=== PATIENT | male | born 1970 | race Caucasian/White ===

== ENCOUNTER 2016-08-02 22:08 | Observation (INO) | payer SELFPAY ==
[~2016-08-02] VITALS: Ht 177.8 cm; Wt 60.5 kg
[~2016-08-02 22:08] MED LIST: DARV PO; DOXY100T PO; PRIL20TA2 PO; SULF1TAB47 PO
[2016-08-02] MEDS ORDERED: OMEP20TA PO (22:38)
[2016-08-02 22:39] VITALS: BP 132/102; PULSE 87; RESP 16; TEMP 99; O2SAT 98
[2016-08-02] MEDS ORDERED: ONDANSETRON HCL 4 MG/2 ML VIAL IVP ONE (22:45)
[2016-08-02] MEDS ORDERED: SODIUM CHLORIDE 0.9% FLUSH 5 ML FLUSH IVF PRN (22:45)
[2016-08-02] MEDS ORDERED: FAMOTIDINE 20 MG/2 ML VIAL IV PUSH ONE (22:45)
[2016-08-02] MEDS ORDERED: PANTOPRAZOLE SODIUM 40 MG VIAL IVP ONE (22:45)
--- NOTE | 2016-08-02 22:56 | PD ---
HPI Chief Complaint: GI Complaint Time Seen by Provider: 22:37 Travel History International Travel<30 days: No Contact w/Intl Traveler<30days: No Traveled to known affect area: No History of Present Illness HPI The patient is a 46-year-old male with a history of gastritis and esophagitis who complains of nausea, vomiting, diarrhea and epigastric pain today. He denies vomiting any blood. He denies any blood in the stool. He denies any fever. He has undergone upper endoscopy in the past and is found to have gastritis and esophagitis according to the patient. Most of his workup in the past has been on in [place] where he used to live but he moved in with his sister here in [place] lately. He does take Prilosec 20 mg daily but missed his dose today. He admits to 2 beers today. He does have a history of anxiety and panic attacks. [facility] Past Medical History GERD: Yes Social History Alcohol Use: Yes (6 PACK PER DAY) Tobacco Use: Yes (1/2 PACK PER DAY) Substance Use: No Allergies-Medications (Allergen,Severity, Reaction): Coded Allergies: No Known Allergies (Verified , 08/02/16) Reported Meds & Prescriptions Reported Meds & Active Scripts Active Reported Omeprazole 20 Mg Tab 20 Mg PO DAILY Review of Systems Except as stated in HPI: all other systems reviewed are Neg Physical Exam Narrative GENERAL: The patient is alert, oriented 3, anxious in slight apparent distress with his abdominal discomfort. His vital signs show blood pressure 132/102 but otherwise normal. SKIN: Warm and dry. HEAD: Atraumatic. Normocephalic. EYES: Pupils equal and round. No scleral icterus. No injection or drainage. ENT: No nasal bleeding or discharge. Mucous membranes pink and moist. NECK: Trachea midline. No JVD. CARDIOVASCULAR: Regular rate and rhythm. No murmur appreciated. RESPIRATORY: No accessory muscle use. Clear to auscultation. Breath sounds equal bilaterally. GASTROINTESTINAL: Abdomen soft, with tenderness to direct palpation in the midline epigastrium and bilateral lower quadrants, nondistended. Hepatic and splenic margins not palpable. No guarding or rebound is present. MUSCULOSKELETAL: No obvious deformities. No clubbing. No cyanosis. No edema. NEUROLOGICAL: Awake and alert. No obvious cranial nerve deficits. Motor grossly within normal limits. Normal speech. PSYCHIATRIC: The patient is anxious but otherwise has an appropriate affect.; insight and judgment normal. Data Data Last Documented VS Vital Signs Date Time Temp Pulse Resp B/P Pulse Ox O2 Delivery O2 Flow Rate FiO2 08/02/16 23:19 80 16 100 Room Air 08/02/16 22:39 99.0 132/102 Orders Complete Blood Count With Diff (08/02/16 22:45) Comprehensive Metabolic Panel (08/02/16 22:45) Lipase (08/02/16 22:45) Urinalysis - C+S If Indicated (08/02/16 22:45) Iv Access Insert/Monitor (08/02/16 22:45) Ecg Monitoring (08/02/16 22:45) Oximetry (08/02/16 22:45) Ondansetron Inj (Zofran Inj) (08/02/16 22:45) Pantoprazole Inj (Protonix Inj) (08/02/16 22:45) Sodium Chloride 0.9% Flush (Ns Flush) (08/02/16 22:45) Famotidine Inj (Pepcid Inj) (08/02/16 22:45) Sodium Chlor 0.9% 1000 Ml Inj (Ns 1000 M (08/02/16 22:45) Alcohol (Ethanol) (08/02/16 22:45) Ns + Kcl Inj (08/03/16 00:45) Labs Laboratory Tests Test 08/02/16 08/02/16 22:40 23:45 White Blood Count 3.8 TH/MM3 Red Blood Count 4.06 MIL/MM3 Hemoglobin 11.4 GM/DL Hematocrit 35.1 % Mean Corpuscular Volume 86.5 FL Mean Corpuscular Hemoglobin 28.2 PG Mean Corpuscular Hemoglobin 32.6 % Concent Red Cell Distribution Width 15.6 % Platelet Count 112 TH/MM3 Mean Platelet Volume 7.9 FL Neutrophils (%) (Auto) 45.8 % Lymphocytes (%) (Auto) 38.6 % Monocytes (%) (Auto) 14.0 % Eosinophils (%) (Auto) 0.4 % Basophils (%) (Auto) 1.2 % Neutrophils # (Auto) 1.8 TH/MM3 Lymphocytes # (Auto) 1.5 TH/MM3 Monocytes # (Auto) 0.5 TH/MM3 Eosinophils # (Auto) 0.0 TH/MM3 Basophils # (Auto) 0.0 TH/MM3 CBC Comment DIFF FINAL Differential Comment Sodium Level 134 MEQ/L Potassium Level 3.0 MEQ/L Chloride Level 95 MEQ/L Carbon Dioxide Level 26.3 MEQ/L Anion Gap 13 MEQ/L Blood Urea Nitrogen 4 MG/DL Creatinine 0.79 MG/DL Estimat Glomerular Filtration 105 ML/MIN Rate Random Glucose 113 MG/DL Calcium Level 8.4 MG/DL Total Bilirubin 0.5 MG/DL Aspartate Amino Transf 281 U/L (AST/SGOT) Alanine Aminotransferase 74 U/L (ALT/SGPT) Alkaline Phosphatase 62 U/L Total Protein 7.9 GM/DL Albumin 3.4 GM/DL Lipase 651 U/L Ethyl Alcohol Level 248 MG/DL Urine Collection Type CLEAN CATCH Urine Color YELLOW Urine Turbidity CLEAR Urine pH 7.0 Urine Specific [place] 1.006 Urine Protein NEG mg/dL Urine Glucose (UA) NEG mg/dL Urine Ketones NEG mg/dL Urine Occult Blood NEG Urine Nitrite NEG Urine Bilirubin NEG Urine Leukocyte Esterase NEG Urine WBC 0-2 /hpf Urine Squamous Epithelial 0-5 /hpf Cells Microscopic Urinalysis Comment CULT NOT INDICATED MDM Medical Decision Making Medical Screen Exam Complete: Yes Emergency Medical Condition: Yes Medical Record Reviewed: Yes Interpretation(s) The complete metabolic profile shows a sodium of 134, potassium 3.0, AST of 281 but is otherwise unremarkable. The lipase is 651. The CBC shows a white count of 3800 with a hemoglobin 11.4 and hematocrit of 35.1 and platelet count of 112, 000 but is otherwise unremarkable. The alcohol level is 248. Differential Diagnosis Alcohol gastritis, pancreatitis, colitis, alcohol intoxication/abuse, electrolyte disorder, dehydration Narrative Course The patient admitted to only 2 beers today, it is obvious that he is not truthful about his alcohol intake. He also has a pancreatitis and is clinically dehydrated. The patient also has a hypokalemia and hyponatremia. The hypokalemia/hyponatremia may be due to his ingestion of water and other hypotonic liquids. Impressions: Pancreatitis, alcohol abuse, dehydration, electrolyte disorder Plan: The patient will be admitted under [address] Rodas of the [facility] service. Diagnosis Primary Impression: Pancreatitis, alcoholic, acute Additional Impressions: Hyponatremia Hypokalemia Moderate dehydration Admitting Information Admitting Physician Requests: Observation Sly Sierra MD Aug 02, 2016 22:56
[2016-08-02] MEDS: SODIUM CHLOR 0.9% 1000 ML INJ 1,000 ML IV SCH ×2 (23:00→23:23)
[2016-08-02 23:14] LABS: CHLORIDE 95 MEQ/L (98-107); SODIUM (NA) 134 MEQ/L (136-145)
[2016-08-02 23:15] LABS: AUTOMATED NEUTROPHIL # 1.8 TH/MM3 (1.8-7.7); BASOPHIL % 1.2 % (0.0-2.0); EOSINOPHIL % 0.4 % (0.0-4.0); HEMATOCRIT 35.1 % (39.0-51.0); HEMO FLAGS DIFF FINAL; LYMPH % 38.6 % (9.0-44.0); LYMPHOCYTE # 1.5 TH/MM3 (1.0-4.8); MEAN CELL VOLUME 86.5 FL (80.0-100.0); MEAN CORPUSCULAR HEMOGLOBIN 28.2 PG (27.0-34.0); MEAN CORPUSCULAR HGB CONC 32.6 % (32.0-36.0); NEUT % 45.8 % (16.0-70.0); PLATELET COUNT 112 TH/MM3 (150-450); RED BLOOD COUNT 4.06 MIL/MM3 (4.50-5.90); RED CELL DISTRIBUTION WIDTH 15.6 % (11.6-17.2); WHITE BLOOD COUNT 3.8 TH/MM3 (4.0-11.0)
[2016-08-02 23:18] LABS: ANION GAP 13 MEQ/L (5-15); BICARBONATE 26.3 MEQ/L (21.0-32.0); BLOOD UREA NITROGEN 4 MG/DL (7-18)
[2016-08-02 23:19] VITALS: PULSE 80; RESP 16; O2SAT 100
[2016-08-02 23:21] LABS: ALT (GPT) 74 U/L (12-78); AST (GOT) 281 U/L (15-37); GLOMERULAR FILTRATION RATE 105 ML/MIN (>89)
[2016-08-02 23:22] LABS: TOTAL BILIRUBIN ADULT 0.5 MG/DL (0.2-1.0)
[2016-08-02 23:24] LABS: ALKALINE PHOSPHATASE 62 U/L (45-117)
[2016-08-03 00:09] LABS: BLOOD, URINE NEG (NEG); GLUCOSE,URINE NEG (NEG); KETONE, URINE NEG (NEG); NITRITE,URINE NEG (NEG)
[2016-08-03 00:19] LABS: METHOD OF COLLECTION CLEAN CATCH; URINE COLOR YELLOW (YELLW/STRAW)
[2016-08-03 00:20] LABS: SQUAMOUS EPITHELIAL CELL URINE 0-5 /hpf (0-5)
[2016-08-03 00:21] LABS: COMMENT (UR) CULT NOT INDICATED; CULTURE IF INDICATED CULT NOT INDICATED; WBC, URINE 0-2 /hpf (0-5)
[2016-08-03] MEDS: NS + KCL 40 MEQ INJ 1,000 ML IV SCH ×2 (00:43→08:42)
[2016-08-03] MEDS: SODIUM CHLOR 0.9% 1000 ML INJ 1,000 ML IV SCH ×2 (01:22→11:22)
[2016-08-03] MEDS ORDERED: LORazepam 2 MG/ML VIAL IV PUSH PRN ×4 (01:30)
[2016-08-03] MEDS ORDERED: ONDANSETRON HCL 4 MG/2 ML VIAL IVP PRN (01:30)
[2016-08-03] MEDS ORDERED: FLUMAZENIL 1 MG/10 ML VIAL IV PUSH PRN (01:30)
[2016-08-03] MEDS ORDERED: NALOXONE HCL 0.4 MG/ML AMP IV PRN (01:30)
[2016-08-03] MEDS ORDERED: SODIUM CHLORIDE 0.9% FLUSH 5 ML FLUSH FLUSH PRN (01:30)
[2016-08-03] MEDS ORDERED: LORazepam 1 MG TAB PO PRN (01:30)
[2016-08-03] MEDS ORDERED: LORazepam 2 MG TAB PO PRN (01:30)
[2016-08-03] MEDS ORDERED: MORPHINE SULFATE 4 MG/ML INJ IV PUSH PRN (01:30)
[2016-08-03] MEDS ORDERED: SODIUM CHLORIDE 0.9% FLUSH 5 ML FLUSH IV FLUSH PRN (01:30)
[2016-08-03 01:37] VITALS: BP 144/89; PULSE 82; RESP 16; O2SAT 99
[2016-08-03 05:46] VITALS: BP 149/93; PULSE 78; RESP 18; TEMP 98.7; O2SAT 96
[2016-08-03 07:15] VITALS: BP 146/90; PULSE 69; RESP 16; TEMP 98.7; O2SAT 98
[2016-08-03 07:55] LABS: AUTOMATED NEUTROPHIL # 1.9 TH/MM3 (1.8-7.7); BASOPHIL % 1.4 % (0.0-2.0); EOSINOPHIL # 0.1 TH/MM3 (0-0.4); EOSINOPHIL % 1.6 % (0.0-4.0); HEMATOCRIT 33.1 % (39.0-51.0); HEMO FLAGS DIFF FINAL; LYMPH % 29.8 % (9.0-44.0); MEAN CELL VOLUME 88.2 FL (80.0-100.0); MEAN CORPUSCULAR HEMOGLOBIN 28.8 PG (27.0-34.0); MEAN CORPUSCULAR HGB CONC 32.7 % (32.0-36.0); MONO % 12.8 % (0.0-8.0); NEUT % 54.4 % (16.0-70.0); PLATELET COUNT 106 TH/MM3 (150-450); RED BLOOD COUNT 3.75 MIL/MM3 (4.50-5.90); RED CELL DISTRIBUTION WIDTH 16.5 % (11.6-17.2); WHITE BLOOD COUNT 3.4 TH/MM3 (4.0-11.0)
[2016-08-03 08:18] LABS: ALKALINE PHOSPHATASE 53 U/L (45-117); ALT (GPT) 66 U/L (12-78); ANION GAP 10 MEQ/L (5-15); AST (GOT) 204 U/L (15-37); BICARBONATE 22.1 MEQ/L (21.0-32.0); BLOOD UREA NITROGEN 3 MG/DL (7-18); CHLORIDE 110 MEQ/L (98-107); GLOMERULAR FILTRATION RATE 115 ML/MIN (>89); POTASSIUM 4.1 MEQ/L (3.5-5.1); SODIUM (NA) 142 MEQ/L (136-145); TOTAL BILIRUBIN ADULT 0.7 MG/DL (0.2-1.0)
[2016-08-03] MEDS ORDERED: SODIUM CHLORIDE 0.9% FLUSH 5 ML FLUSH IV FLUSH SCH (09:00)
[2016-08-03] MEDS ORDERED: SODIUM CHLORIDE 0.9% FLUSH 5 ML FLUSH FLUSH SCH (09:00)
[2016-08-03 11:16] VITALS: BP 146/83; PULSE 67; RESP 18; TEMP 99.2; O2SAT 98
[2016-08-03 13:05] VITALS: BP 163/92; PULSE 69; RESP 18; O2SAT 98
[2016-08-03] MEDS ORDERED: cloNIDine HCL 0.1 MG TAB PO PRN (13:45)
[2016-08-03] MEDS ORDERED: PANTOPRAZOLE SOD 20 MG DELAYED RELEASE TAB PO SCH (14:00)
--- NOTE | 2016-08-03 14:05 | HHI.HP ---
[facility] No Primary Care Physician Admission Diagnosis pancreatitis, dehydration, electrolyte disorder, alcohol abuse Diagnoses: (1) Abdominal pain Diagnosis: Principal (2) Nausea & vomiting Diagnosis: Principal (3) Elevated lipase Diagnosis: Principal (4) Alcohol abuse Diagnosis: Secondary (5) Hyponatremia Diagnosis: Principal (6) Hypokalemia Diagnosis: Principal (7) Elevated blood pressure reading Diagnosis: Principal Chief Complaint: Abdominal pain with nausea vomiting Travel History International Travel<30 Days: No Contact w/Intl Traveler <30 Da: No Traveled to Known Affected Are: No History of Present Illness 46-year-old male with known history of chronic alcoholism who presented to hospital as of abdominal pain, nausea and vomiting. Patient states that 3 days ago he feels if he had a panic attack. However he recovered from that and had no other further problems. Then yesterday he experienced some generalized abdominal pain and had one episode of nausea vomiting. Because of that reason he came to the hospital for evaluation. Patient denies any hematemesis, recurrent nausea or vomiting, diarrhea, hematochezia. Patient indicates that he does have chronic abdominal issues in which she does take Prilosec on a daily basis. The patient indicates a previous endoscopy before and was notified that he had gastritis. At the time evaluating the patient the patient seems to be doing much improved. He has not had any recurrent nausea or vomiting. He has been well hydrated and urinating copiously. He does have an appetite and he is hungry. Review of Systems Constitutional: DENIES: Diaphoretic episodes, Fatigue, Fever, Weight gain, Weight loss, Chills, Dizziness, Change in appetite, Night Sweats Eyes: DENIES: Blurred vision, Diplopia, Eye inflammation, Eye pain, Vision loss , Double Vision Ears, nose, mouth, throat: DENIES: Vertigo, Nasal discharge, Throat pain, Ear Pain, Running Nose, Sinus Pain Respiratory: DENIES: Apneas, Cough, Snoring, Wheezing, Hemoptysis, Sputum production, Shortness of breath Cardiovascular: DENIES: Chest pain, Palpitations, Syncope, Dyspnea on Exertion , Lower Extremity Edema, Orthopnea Gastrointestinal: COMPLAINS OF: Abdominal pain, Nausea, Vomiting, DENIES: Black stools, Bloody stools, Constipation, Diarrhea, Difficulty Swallowing, Anorexia Neurologic: DENIES: Abnormal gait, Headache, Localized weakness, Paresthesias, Seizures, Speech Problems, Tremor, Poor Balance Psychiatric: COMPLAINS OF: Anxiety, DENIES: Confusion, Mood changes, Depression Past Family Social History Past Medical History Chronic alcohol abuse Panic attacks Tobacco use Past Surgical History Endoscopies Reported Medications Reported Meds & Active Scripts Active Reported Omeprazole 20 Mg Tab 20 Mg PO DAILY Allergies: Coded Allergies: No Known Allergies (Verified , 08/02/16) Family History Reviewed is significant for diabetes and stroke Social History Patient smokes about 5-10 cigarettes daily since he was 14 years old. Does drink alcohol roughly 8-10 beers daily. Denies any illicit drug use, however records indicate he has history of cocaine use Physical Exam Vital Signs Vital Signs Date Time Temp Pulse Resp B/P Pulse Ox O2 Delivery O2 Flow Rate FiO2 08/03/16 13:05 69 18 163/92 98 08/03/16 11:16 99.2 67 18 146/83 98 08/03/16 07:15 16 08/03/16 07:15 98 Room Air 08/03/16 07:15 98.7 69 16 146/90 98 Room Air 08/03/16 05:46 98.7 78 18 149/93 96 Room Air 08/03/16 01:37 82 16 144/89 99 Room Air 08/02/16 23:19 80 16 100 Room Air 08/02/16 22:39 99.0 87 16 132/102 98 Physical Exam GENERAL: Well-developed, well-nourished, in no acute distress. alert and orientated HEENT: Head is normocephalic without any lesions or masses noted. Facial features are symmetric. Eyes: Pupils equal round reactive to light. Extraocular muscles are intact. Conjunctivae were clear. Oropharyngeal: Pharynx without any erythema edema. Tongue is midline without deviation. Buccal mucosa is moist without any masses or lesions NECK: Supple without any masses. Trachea midline no deviation. No JVD, no bruits are appreciated CARDIAC: Regular rhythm, regular rate. S1/S2 are heard. No murmurs gallops or rubs. LUNGS: Clear to auscultation bilaterally. No wheeze, rhonchi or rales. No use of accessory muscles on inspiration or expiration. ABDOMEN: Soft, nontender. Nondistended. Bowel sounds heard in all 4 quadrants. No organomegaly or masses. Negative rebound, negative guarding EXTREMITIES: No edema, pulses are equal bilaterally. No cyanosis or clubbing NEUROLOGY: Mood and affect appear appropriate. Cranial nerves II through XII grossly intact. Muscle strength 5/5 in upper and lower extremities bilaterally. Deep tendon reflexes are 2+ in upper and lower extremities bilaterally. Laboratory Laboratory Tests Test 08/02/16 08/02/16 08/03/16 22:40 23:45 07:44 White Blood Count 3.8 3.4 Red Blood Count 4.06 3.75 Hemoglobin 11.4 10.8 Hematocrit 35.1 33.1 Mean Corpuscular Volume 86.5 88.2 Mean Corpuscular Hemoglobin 28.2 28.8 Mean Corpuscular Hemoglobin 32.6 32.7 Concent Red Cell Distribution Width 15.6 16.5 Platelet Count 112 106 Mean Platelet Volume 7.9 7.7 Neutrophils (%) (Auto) 45.8 54.4 Lymphocytes (%) (Auto) 38.6 29.8 Monocytes (%) (Auto) 14.0 12.8 Eosinophils (%) (Auto) 0.4 1.6 Basophils (%) (Auto) 1.2 1.4 Neutrophils # (Auto) 1.8 1.9 Lymphocytes # (Auto) 1.5 1.0 Monocytes # (Auto) 0.5 0.4 Eosinophils # (Auto) 0.0 0.1 Basophils # (Auto) 0.0 0.0 CBC Comment DIFF FINAL DIFF FINAL Differential Comment Sodium Level 134 142 Potassium Level 3.0 4.1 Chloride Level 95 110 Carbon Dioxide Level 26.3 22.1 Anion Gap 13 10 Blood Urea Nitrogen 4 3 Creatinine 0.79 0.73 Estimat Glomerular Filtration 105 115 Rate Random Glucose 113 79 Calcium Level 8.4 7.8 Total Bilirubin 0.5 0.7 Aspartate Amino Transf 281 204 (AST/SGOT) Alanine Aminotransferase 74 66 (ALT/SGPT) Alkaline Phosphatase 62 53 Total Protein 7.9 7.0 Albumin 3.4 3.0 Lipase 651 493 Ethyl Alcohol Level 248 Urine Collection Type CLEAN CATCH Urine Color YELLOW Urine Turbidity CLEAR Urine pH 7.0 Urine Specific [place] 1.006 Urine Protein NEG Urine Glucose (UA) NEG Urine Ketones NEG Urine Occult Blood NEG Urine Nitrite NEG Urine Bilirubin NEG Urine Leukocyte Esterase NEG Urine WBC 0-2 Urine Squamous Epithelial 0-5 Cells Microscopic Urinalysis Comment CULT NOT INDICATED Result Diagram: 08/03/16 0744 08/03/16 0744 Assessment and Plan Assessment and Plan Abdominal pain with nausea, vomiting, elevated lipase level Could possibly be alcoholic pancreatitis versus alcoholic gastritis Continue IV fluids, antiemetic, proton pump inhibitor, pain control Lipase level is trending down nicely Clear liquid diet, advance diet as tolerated patient is hungry Chronic alcohol use Patient counseled on cessation, patient states that he is not going to quit drinking, but he will try to cut back on drinking CIWA protocol Monitor for withdrawals Elevated blood pressure Likely secondary to alcohol abuse, withdrawal Clonidine as needed Electrolyte abnormalities with hyponatremia, hypokalemia, resolved Likely secondary to chronic alcohol use Continue monitoring place as needed DVT prevention Low risk, early ambulation Written by Cr Sierra PA-C, acting as scribe for Dr. Dickerson on 08/03/16 at 1400. The documentation accurately reflects the work and decisions performed face-to- face by Dr. Dickerson on 08/03/16 at 1400. Discharge disposition Discharge home in stable condition if tolerates diet Activity: Ad angie. Diet: Healthy heart diet Medications per medication reconciliation Follow-up primary medical doctor in one week Problem Qualifiers (1) Abdominal pain: Qualified Code: R10.84 - Generalized abdominal pain (2) Nausea & vomiting: Qualified Code: R11.2 - Non-intractable vomiting with nausea, unspecified vomiting type Cr Sierra Aug 03, 2016 14:05
--- NOTE | 2016-08-03 14:07 | HHI.DCPOC ---
Discharge Care Plan Diagnosis: (1) Abdominal pain (2) Nausea & vomiting (3) Alcohol abuse Goals to Promote Your Health * To prevent worsening of your condition and complications * To maintain your health at the optimal level Directions to Meet Your Goals Take your medications as prescribed Follow your dietary instruction Follow activity as directed Keep your appointments as scheduled Take your immunizations and boosters as scheduled If your symptoms worsen call your PCP, if no PCP go to Urgent Care Center or Emergency Room Smoking is Dangerous to Your Health. Avoid second hand smoke Call the 24-hour hour crisis hotline for domestic abuse at Cr Sierra Aug 03, 2016 14:07
[2016-08-03] MEDS ORDERED: CHLO10CA2 PO (14:21)
== END 2016-08-03 15:36 | disposition home or self-care (01) ==
LOC: PHED 22:08 → PHEDA 08-03 01:04 → PHEDH 08-03 05:04 → UNDODISOB 08-03 15:27
PROVIDERS: ADMIT Family Medicine; ATTEND Family Medicine
DX: K85.20 Alcohol induced acute pancreatitis without necrosis or infection (principal); E87.1 Hypo-osmolality and hyponatremia; E87.6 Hypokalemia; E86.0 Dehydration; K29.70 Gastritis, unspecified, without bleeding; K21.0 Gastro-esophageal reflux disease with esophagitis; R19.7 Diarrhea, unspecified; F17.200 Nicotine dependence, unspecified, uncomplicated; R74.8 Abnormal levels of other serum enzymes; F10.10 Alcohol abuse, uncomplicated; R03.0 Elevated blood-pressure reading, without diagnosis of hypertension
CPT/HCPCS: 80053; 80320; 81001; 83690; 85025; 96361; 96374; 96375; 99285; C9113; G0378; J2060; J2405; J3480; J7030

== ENCOUNTER 2016-12-10 15:13 | Emergency (ER) | payer SELFPAY ==
[~2016-12-10] VITALS: Ht 177.8 cm; Wt 68.0 kg
[~2016-12-10 15:13] MED LIST changes: +CHLO10CA2 PO; -DARV PO; -DOXY100T PO; +OMEP20TA PO; -PRIL20TA2 PO; -SULF1TAB47 PO
[2016-12-10 15:15] VITALS: BP 128/90; PULSE 78; RESP 17; TEMP 98.2; O2SAT 99
[2016-12-10] MEDS ORDERED: BC POWDER PO (15:22)
--- NOTE | 2016-12-10 15:31 | PD ---
HPI . left foot pain and swelling x 5 day Chief Complaint: Musculoskeletal Complaint Time Seen by Provider: 15:31 Travel History International Travel<30 days: No Contact w/Intl Traveler<30days: No Traveled to known affect area: No History of Present Illness HPI 46-year-old male here with GERD and alcohol dependence here with complaints of left foot pain for 5 days. Patient tells me that approximately 5 days ago he developed some left foot pain and swelling. He says it has worsened over the past 3 days. He tells me he was possibly bitten by a spider, but does not recall. He does drink quite heavily. He says he's had a lot of alcoholic beverages yesterday, and only 2 today. He denies any fever or chills. He has no reported history of gout. He is uncertain if he actually experienced any type of trauma. PFSH Past Medical History Anxiety: Yes Depression: No Cancer: No Cardiovascular Problems: No Endocrine: No Gastrointestinal Disorders: Yes GERD: Yes (GASTRITIS AND ESOPHAGITIS) Genitourinary: No Immune Disorder: No Musculoskeletal: No Neurologic: No Psychiatric: Yes ("PANIC ATTACKS") Reproductive: No Respiratory: No Tetanus Vaccination: > 5 Years Influenza Vaccination: Yes Past Surgical History Abdominal Surgery: No Cardiac Surgery: No Ear Surgery: No Endocrine Surgery: No Eye Surgery: No Genitourinary Surgery: No Gynecologic Surgery: No Oral Surgery: Yes (WISDOM TEETH IN TEENS) Thoracic Surgery: No Other Surgery: Yes (UPPER ENDOSCOPY: 2007) Social History Alcohol Use: Yes (6 PACK PER DAY) Tobacco Use: Yes (08/03 PPD) Substance Use: No (HX OF COCAINE: QUIT JANUARY 2016) Allergies-Medications (Allergen,Severity, Reaction): Coded Allergies: No Known Allergies (Verified , 08/02/16) Reported Meds & Prescriptions Reported Meds & Active Scripts Active Prednisone 50 Mg Tab 50 Mg PO DAILY Bactrim DS (Sulfamethoxazole-Trimethoprim) 800-160 Mg Tab 1 Tab PO BID Reported [Bc Powder] PO PRN Omeprazole 20 Mg Tab 20 Mg PO DAILY Review of Systems General / Constitutional: No: Fever Eyes: No: Visual changes HENT: No: Headaches Cardiovascular: No: Chest Pain or Discomfort Respiratory: No: Shortness of Breath Gastrointestinal: No: Abdominal Pain Genitourinary: No: Dysuria Musculoskeletal: Positive: Pain (left foot pain) Skin: No Rash Neurologic: No: Weakness Psychiatric: No: Depression Endocrine: No: Polydipsia Hematologic/Lymphatic: No: Easy Bruising Physical Exam Exam Limitations: Poor Historian Narrative GENERAL: AAO x 3, no acute distress, Well-nourished, well-developed patient. SKIN: Warm and dry. No visible rashes or bruising. Edema to the left foot +1, mild erythema of the left distal foot, small excoriation to distal midfoot, no open wounds or purulence HEAD: Normocephalic and atraumatic. EYES: No scleral icterus. No injection or drainage. ENT: No nasal drainage noted. Mucous membranes pink. Airway patent. NECK: Supple, trachea midline. No JVD. CARDIOVASCULAR: Regular rate and rhythm without murmurs, gallops, or rubs. RESPIRATORY: Breath sounds equal bilaterally. No accessory muscle use. No rhonchi or rales. GASTROINTESTINAL: Abdomen soft, non-tender, nondistended. EXTREMITIES: No cyanosis left foot: 1+ edema, erythema, tenderness to the distal foot, Decreased range of motion of toes secondary pain NEURO: sensation intact BACK: Nontender without obvious deformity. No CVA tenderness. PSYCH: AAO x 3, normal affect. Data Data Last Documented VS Vital Signs Date Time Temp Pulse Resp B/P Pulse Ox O2 Delivery O2 Flow Rate FiO2 12/10/16 15:15 98.2 78 17 128/90 99 Orders Foot, Complete ([id number]) (12/10/16 15:34) MDM Medical Decision Making Medical Screen Exam Complete: Yes Emergency Medical Condition: Yes Medical Record Reviewed: Yes Differential Diagnosis cellulitis, gout, less likely fracture Narrative Course 46-year-old male here with GERD and alcohol dependence here with complaints of left foot pain for 5 days. Patient tells me that approximately 5 days ago he developed some left foot pain and swelling. He says it has worsened over the past 3 days. He tells me he was possibly bitten by a spider, but does not recall. He does drink quite heavily. He says he's had a lot of alcoholic beverages yesterday, and only 2 today. He denies any fever or chills. He has no reported history of gout. He is uncertain if he actually experienced any type of trauma. Patient seen and examined. He does appear to have a cellulitis of his left distal foot. He also has some point tenderness to this area, therefore I will check an x- ray. He is a very poor historian. xray negative for acute fracture will treat as cellulitis and possible gout antibiotics and prednisone provided advised f/u with PCP Patient verbalized understanding of instructions, questions were answered, and thanked me for their care. I advised them if their condition worsens, please return to the nearest emergency room for further care. Diagnosis Primary Impression: Foot pain, left Additional Impression: Cellulitis Qualified Code: L03.116 - Cellulitis of left lower extremity Patient Instructions: Cellulitis (ED), General Instructions, Gout (ED) Additional Instructions: [place] for worsening signs of infection which include fever, increased redness , increased warmth, purulent drainage, increased swelling or streaking. If any of these develop, please go to the nearest emergency room. Please return to emergency department if your symptoms return or worsen. Follow up with your primary care provider. Take medications as prescribed. Med/Other Pt SpecificInfo: Prescription(s) given Scripts Prednisone 50 Mg Tab50 Mg PO DAILY #5 TAB Prov:Bobbi Ornelas DO 12/10/16 Sulfamethoxazole-Trimethoprim (Bactrim DS)800-160 Mg Tab1 Tab PO BID #20 TAB Prov:Bobbi Ornelas DO 12/10/16 Disposition: 01 DISCHARGE HOME Condition: Stable Rina Huertas December 10, 2016 15:31
[2016-12-10] MEDS ORDERED: BACT800T5 PO (16:01)
[2016-12-10] MEDS ORDERED: PRED50 PO (16:01)
--- NOTE | 2016-12-10 16:38 | RADRPT ---
EXAM DATE/TIME: 12/10/2016 15:45 [place] COMPARISON: No previous studies available for comparison. INDICATIONS : Pain and swelling for several days post physical injury. MEDICAL HISTORY : None. SURGICAL HISTORY : None. ENCOUNTER: Initial ACUITY: 4 - 6 days PAIN SCORE: 5/10 LOCATION: Left foot. FINDINGS: Three view examination of the left foot demonstrates no soft tissue swelling, dislocation, or fractur e. The tarsal bones appear intact. The interphalangeal and metatarsophalangeal joints are intact. The calcaneus is intact. Bony mineralization is normal. CONCLUSION: No acute disease. El Buckley MD on December 10, 2016 at 16:35 Board Certified Radiologist. This report was verified electronically.
== END 2016-12-10 17:01 | disposition home or self-care (01) ==
LOC: NEPK 15:13
DX: M79.672 Pain in left foot (principal); L03.116 Cellulitis of left lower limb; K21.9 Gastro-esophageal reflux disease without esophagitis; F10.20 Alcohol dependence, uncomplicated; F17.210 Nicotine dependence, cigarettes, uncomplicated
CPT/HCPCS: 73630; 99283